=== PATIENT | female | born 1970 | race Caucasian/White ===

== ENCOUNTER 2018-06-05 00:43 | Inpatient (IN) | payer MEDICAID ==
[~2018-06-05] VITALS: Ht 160 cm; Wt 86.3 kg
[2018-06-05 00:48] VITALS: Ht 160 cm; Wt 86.3 kg
[2018-06-05 01:41] LABS: BASOPHIL % 0.5 % (0-2); PLATELET COUNT 307 x10^3mcL (130-400); RED CELL DISTRIBUTION WIDTH 12.7 % (11.5-14.5)
[2018-06-05 01:51] LABS: CALCIUM 8.1 mg/dL (8.5-10.1); CARBON DIOXIDE 29.3 mmol/L (21-32); CHLORIDE SERUM 105 mmol/L (98-107); CREATININE SERUM 0.8 mg/dL (0.6-1.0); GFR1 > 60 mL/min; GLUCOSE SERUM 106 mg/dL (74-106); POTASSIUM SERUM 3.8 mmol/L (3.5-5.1); SODIUM SERUM 139 mmol/L (136-145)
[2018-06-05 01:56] LABS: ALBUMIN 3.1 g/dL (3.4-5.0); ALKALINE PHOSPHATASE 58 U/L (46-116); ALT/SGPT 42 U/L (14-59); AMYLASE 48 U/L (25-115); AST/SGOT 10 U/L (15-37); BILIRUBIN TOTAL 0.11 mg/dL (0.20-1.00); LIPASE 101 IU/L (73-393); TOTAL PROTEIN, SERUM 6.8 g/dL (6.4-8.2)
[2018-06-05 02:49] LABS: UA SPECIFIC GRAVITY 1.025 (1.005-1.035); microscopic required? YES; urine erythrocyte NEGATIVE (NEGATIVE)
[2018-06-05 04:54] LABS: HCG SERUM QUALITATIVE POSITIVE; HCG SERUM QUANTITATIVE 31022 mIU/mL
[2018-06-05 09:24] VITALS: BP 117/51
[2018-06-05 12:06] VITALS: BP 117/51
[2018-06-05 17:31] VITALS: BP 107/45
[2018-06-05 21:30] VITALS: BP 100/61
[2018-06-06 05:26] VITALS: BP 100/54
[2018-06-06 07:08] LABS: CALCIUM 8.7 mg/dL (8.5-10.1); CARBON DIOXIDE 26.6 mmol/L (21-32); CHLORIDE SERUM 105 mmol/L (98-107); CREATININE SERUM 0.7 mg/dL (0.6-1.0); GFR1 > 60 mL/min; GLUCOSE SERUM 115 mg/dL (74-106); MAGNESIUM 2.1 mg/dL (1.8-2.4); PHOSPHOROUS 4.3 mg/dL (2.5-4.9); SODIUM SERUM 139 mmol/L (136-145)
[2018-06-06 08:52] LABS: BASOPHIL % 0.4 % (0-2); PLATELET COUNT 278 x10^3mcL (130-400); RED CELL DISTRIBUTION WIDTH 14.2 % (11.5-14.5)
[2018-06-06 09:29] VITALS: BP 120/53
[2018-06-06 11:14] VITALS: BP 120/53
[2018-06-06] MEDS ORDERED: MAC100 PO (11:40)
[2018-06-06] MEDS ORDERED: NOR10T PO (11:40)
== END 2018-06-06 12:38 | disposition home or self-care (01) | DRG 468 ==
LOC: ED 00:43 → MU 05:47
PROVIDERS: Emergency Medicine; ADMIT General Practice
DX: N28.89 Other specified disorders of kidney and ureter (principal); E44.1 Mild protein-calorie malnutrition; N39.0 Urinary tract infection, site not specified; Z68.34 Body mass index [BMI] 34.0-34.9, adult; Z33.1 Pregnant state, incidental
CPT/HCPCS: J0696; J1170; J1885; J2270; J2405; J3010; J7030; Q0092